=== PATIENT | male | born 1940 | race Caucasian/White ===

== ENCOUNTER 2019-09-30 13:17 | Emergency (ER) | payer OTHER ==
[~2019-09-30] VITALS: Ht 167.6 cm; Wt 78.5 kg
[~2019-09-30 13:17] MED LIST: AGGRENOX 25 MG1 EACH; ESTAZOLAM2 MG; METFORMIN HYDR100 GM; NORVASC2.5 M1
[2019-09-30] MEDS ORDERED: TRICOR48 MG PO (14:14)
[2019-09-30] MEDS ORDERED: CRESTOR20 MG PO (14:14)
[2019-09-30] MEDS ORDERED: [UNRECOGNIZED DRUG - MIXTURE] (14:14)
== END 2019-09-30 16:30 | disposition home or self-care (01) ==
LOC: ER 13:17
DX: R04.0 Epistaxis (principal)

== ENCOUNTER 2022-02-27 08:44 | Emergency (ER) | payer OTHER ==
[~2022-02-27] VITALS: Ht 167.6 cm; Wt 74.8 kg
[~2022-02-27 08:44] MED LIST changes: +CRESTOR20 MG PO; +TRICOR48 MG PO; +[UNRECOGNIZED DRUG - MIXTURE]
[2022-02-27] MEDS ORDERED: NORFLEX100MG PO (12:31)
== END 2022-02-27 12:36 | disposition home or self-care (01) ==
LOC: ER 08:44
DX: M54.2 Cervicalgia (principal); R07.89 Other chest pain; Z20.822 Contact with and (suspected) exposure to COVID-19; E11.9 Type 2 diabetes mellitus without complications; Z79.84 Long term (current) use of oral hypoglycemic drugs; I10 Essential (primary) hypertension

== ENCOUNTER 2022-10-03 07:21 | Outpatient (CLI) | payer OTHER ==
[~2022-10-03 07:21] MED LIST changes: +NORFLEX100MG PO
== END 2022-10-03 07:22 | disposition home or self-care (01) ==
LOC: RX STUDY 07:21
PROVIDERS: ATTEND Internal Medicine Pulmonary Disease
DX: J43.2 Centrilobular emphysema (principal); J98.6 Disorders of diaphragm; Z87.891 Personal history of nicotine dependence; R06.02 Shortness of breath